=== PATIENT | female | born 1955 | race Two or more races ===

== ENCOUNTER 2017-08-07 05:52 | Day surgery (SDC) | payer OTHER ==
[2017-08-07] MEDS ORDERED: SOD CHLORIDE 0.9% 1,000 ML IV (06:00)
[2017-08-07] MEDS ORDERED: CEFAZOLIN 2 GM/50 ML (PMX) 50 ML IVPB (06:00)
[2017-08-07] MEDS ORDERED: MIDAZOLAM 1 MG/ML 2 ML INJ (06:45)
[2017-08-07] MEDS ORDERED: LIDOCAINE 1% (MDV) 20 ML INJ (06:45)
[2017-08-07] MEDS ORDERED: PROPOFOL 20 ML (06:45)
[2017-08-07] MEDS ORDERED: ROCURONIUM 50 MG INJ (06:46)
[2017-08-07] MEDS ORDERED: SUCCINYLCHOLINE CHLORIDE 100 MG/5 ML SYG IV (06:46)
[2017-08-07] MEDS ORDERED: FENTAnyl 50 MCG/ML VIAL (06:47)
[2017-08-07] MEDS ORDERED: DEXAMETHASONE 4 MG/ML 1 ML INJ (06:47)
[2017-08-07] MEDS ORDERED: ONDANSETRON 4 MG INJ (06:48)
[2017-08-07] MEDS ORDERED: CEFAZOLIN 1 GM INJ (06:48)
[2017-08-07 06:49] LABS: ADD MAN DIFF? NO
[2017-08-07] MEDS ORDERED: EPHEDrine SULFATE 50 MG/5 ML SYG (06:49)
[2017-08-07] MEDS ORDERED: PHENYLephrine (100 MCG/ML) 5ML SYG (06:49)
[2017-08-07 06:51] LABS: WHITE BLOOD COUNT 4.4 10^3/ul (4.8-10.8)
[2017-08-07 06:51] LABS: BASOPHIL # 0.1 10^3/ul (0.0-0.1); BASOPHILS % 1.6 % (0.0-2.0); EOSINOPHILS # 0.2 10^3/ul (0.0-0.5); EOSINOPHILS % 3.7 % (0.0-7.0); HEMATOCRIT 36.9 % (37.0-47.0); HEMOGLOBIN 12.4 g/dl (12.0-16.0); LYMPHOCYTES # 1.8 10^3/ul (0.8-2.9); LYMPHOCYTES % 41.1 % (15.0-51.0); MEAN CORPUSCULAR HGB CONC 33.6 g/dl (32.0-37.0); MEAN CORPUSCULAR VOLUME 92.3 fl (82.0-101.0); MEAN PLATELET VOLUME 10.9 fl (7.4-10.4); MONOCYTE # 0.3 10^3/ul (0.3-0.9); MONOCYTES % 6.7 % (0.0-11.0); NEUTROPHILS % 46.7 % (39.0-77.0); PLATELET COUNT 218 10^3/UL (140-415); RED CELL DISTRIBUTION WIDTH 13.8 % (11.5-14.5)
[2017-08-07 07:05] LABS: INR 0.94; PROTIME 12.7 Sec (11.9-14.9)
[2017-08-07 07:06] LABS: PARTIAL THROMBOPLASTIN TIME 28.7 Sec (25.0-35.0)
[2017-08-07 07:23] LABS: ALANINE AMINOTRANSFERASE 28 IU/L (13-69); ALBUMIN 4.6 g/dl (3.3-4.9); ALBUMIN/GLOBULIN RATIO 1.48; ALKALINE PHOSPHATASE 67 IU/L (42-121); ANION GAP 18 (8-16); ASPARTATE AMINO TRANSFERASE 26 IU/L (15-46); BILIRUBIN,INDIRECT 1.1 mg/dl (0-1.1); BILIRUBIN,TOTAL 1.1 mg/dl (0.2-1.3); CARBON DIOXIDE 26 mmol/L (21-31); CHLORIDE 106 mmol/L (97-110); GLUCOSE 94 mg/dl (70-220); TOTAL PROTEIN 7.7 g/dl (6.1-8.1)
[2017-08-07 07:25] LABS: BLOOD UREA NITROGEN 12 mg/dl (7-20); CALCIUM 9.2 mg/dl (8.4-10.2); CREATININE 0.88 mg/dl (0.44-1.00); POTASSIUM 4.2 mmol/L (3.5-5.1)
[2017-08-07 07:26] LABS: SODIUM 146 mmol/L (135-144)
[2017-08-07] MEDS ORDERED: ACETAMINOPHEN 1000MG/100ML IV 100 ML (07:40)
[2017-08-07] MEDS ORDERED: HYDROmorphONE 2 MG/ML SYG (07:43)
[2017-08-07] MEDS ORDERED: SUGAMMADEX SODIUM 200 MG/2 ML VIAL IV ×2 (07:54→08:19)
[2017-08-07] MEDS: BUPIVACAINE 0.25% (MPF) 30 ML INJ (08:04)
[2017-08-07] MEDS ORDERED: GLYCOPYRROLATE 0.4 MG INJ (08:07)
[2017-08-07] MEDS ORDERED: LABETALOL HCL 20MG INJ (08:15)
[2017-08-07] MEDS ORDERED: NALOXONE (0.4 MG/ML) INJ (08:25)
[2017-08-07] MEDS ORDERED: HYDROmorphONE (0.2 MG/ML) 10ML SYG IV ×3 (08:40→09:00)
[2017-08-07] MEDS ORDERED: IBUPROFEN 600 MG TAB PO (09:00)
[2017-08-07] MEDS ORDERED: morphine 2 MG INJ IV (09:00)
[2017-08-07] MEDS ORDERED: OXYCODONE/ACETAMINOPHEN (5/325) TAB PO ×2 (09:00)
[2017-08-07] MEDS ORDERED: ONDANSETRON 4 MG INJ IV ×2 (09:00)
[2017-08-07] MEDS ORDERED: morphine 10 MG INJ IM (09:00)
[2017-08-07] MEDS: HYDROmorphONE (0.2 MG/ML) 10ML SYG IV (09:09)
[2017-08-07] MEDS: KETOROLAC 30 MG INJ IV (09:16)
== END 2017-08-07 11:00 | disposition home or self-care (01) ==
LOC: SDS 05:52
DX: K80.10 Calculus of gallbladder with chronic cholecystitis without obstruction (principal)
CPT/HCPCS: 47562; 71045; 80053; 85025; 85610; 85730; 88304; 93005

== ENCOUNTER 2017-09-01 11:56 | Inpatient (IN) | payer OTHER ==
[2017-09-01] MEDS: ONDANSETRON 4 MG INJ IV (16:49)
[2017-09-01] MEDS: morphine 4 MG/ML VIAL IV (16:50)
[2017-09-01 17:20] LABS: ADD MAN DIFF? NO
[2017-09-01 17:28] LABS: WHITE BLOOD COUNT 9.3 10^3/ul (4.8-10.8)
[2017-09-01 17:28] LABS: ADD UMIC YES; BASOPHIL # 0.1 10^3/ul (0.0-0.1); BASOPHILS % 0.6 % (0.0-2.0); EOSINOPHILS % 0.1 % (0.0-7.0); HEMATOCRIT 36.1 % (37.0-47.0); HEMOGLOBIN 11.9 g/dl (12.0-16.0); LYMPHOCYTES # 1.2 10^3/ul (0.8-2.9); LYMPHOCYTES % 13.3 % (15.0-51.0); MEAN CORPUSCULAR HEMOGLOBIN 29.8 pg (29.0-33.0); MEAN CORPUSCULAR VOLUME 90.5 fl (82.0-101.0); MONOCYTE # 0.5 10^3/ul (0.3-0.9); MONOCYTES % 5.4 % (0.0-11.0); NEUTROPHIL # 7.5 10^3/ul (1.6-7.5); NEUTROPHILS % 80.3 % (39.0-77.0); PLATELET COUNT 651 10^3/UL (140-415); RED BLOOD COUNT 3.99 10^6/ul (4.20-5.40); RED CELL DISTRIBUTION WIDTH 13.2 % (11.5-14.5); UR ASCORBIC ACID 20 mg/dL (NEGATIVE); UR BILIRUBIN (Dip) 1+ mg/dL (NEGATIVE); UR BLOOD (Dip) 1+ mg/dL (NEGATIVE); UR CLARITY CLOUDY (CLEAR); UR COLOR AMBER (YELLOW); UR GLUCOSE (Dip) 1+ mg/dL (NEGATIVE); UR KETONES (Dip) 1+ mg/dL (NEGATIVE); UR LEUKOCYTE ESTERASE (Dip) NEGATIVE Leu/ul (NEGATIVE); UR MUCUS MANY /HPF (NONE SEEN); UR NITRITE (Dip) NEGATIVE (NEGATIVE); UR RBC 9 /HPF (0-5); UR SPECIFIC GRAVITY (Dip) 1.027 (1.003-1.030); UR SQUAMOUS EPITHELIAL CELL MODERATE /HPF (FEW); UR TOTAL PROTEIN (Dip) 3+ mg/dl (NEGATIVE); UR UROBILINOGEN (Dip) 2+ mg/dL (NEGATIVE); UR WBC 4 /HPF (0-5)
[2017-09-01 17:36] LABS: PROTIME 13.3 Sec (11.9-14.9)
[2017-09-01 17:37] LABS: PARTIAL THROMBOPLASTIN TIME 32.5 Sec (25.0-35.0)
[2017-09-01 17:41] LABS: ALANINE AMINOTRANSFERASE 51 IU/L (13-69); ALBUMIN 4.6 g/dl (3.3-4.9); ALBUMIN/GLOBULIN RATIO 1.06; ALKALINE PHOSPHATASE 426 IU/L (42-121); ANION GAP 22 (8-16); ASPARTATE AMINO TRANSFERASE 45 IU/L (15-46); BILIRUBIN,INDIRECT 0.5 mg/dl (0-1.1); BILIRUBIN,TOTAL 0.5 mg/dl (0.2-1.3); BLOOD UREA NITROGEN 26 mg/dl (7-20); CALCIUM 10.5 mg/dl (8.4-10.2); CARBON DIOXIDE 28 mmol/L (21-31); CHLORIDE 96 mmol/L (97-110); CREATININE 1.07 mg/dl (0.44-1.00); GLUCOSE 113 mg/dl (70-220); LIPASE 156 U/L (23-300); POTASSIUM 3.9 mmol/L (3.5-5.1); SODIUM 142 mmol/L (135-144); TOTAL PROTEIN 8.9 g/dl (6.1-8.1)
[2017-09-01] MEDS: IOHEXOL 300MG/ML 150 ML BTL ×2 (18:10)
[2017-09-01] MEDS: SOD CHLORIDE 0.9% 100 ML (18:10)
[2017-09-01] MEDS: IODIXANOL LOCM 100 ML BTL (18:11)
[2017-09-01] MEDS: PIPER-TAZO 3.375 GM IV (PMX) 100 ML IVPB (20:27)
[2017-09-01] MEDS ORDERED: ACETAMINOPHEN 325 MG TAB PO (21:00)
[2017-09-01] MEDS ORDERED: INDOMETHACIN 50 MG SUPP PR (21:00)
[2017-09-01] MEDS ORDERED: ONDANSETRON 4 MG INJ IV (21:00)
[2017-09-02] MEDS ORDERED: ALBUTEROL/IPRATROPIUM (NEB) 3 ML AMP HHN (00:30)
[2017-09-02] MEDS ORDERED: ONDANSETRON 4 MG INJ IV ×2 (00:30→16:30)
[2017-09-02] MEDS ORDERED: NACL 0.9% 3 ML SYG IV (00:30)
[2017-09-02] MEDS: DEXTROSE 5%-0.45% NACL 1,000 ML IV ×3 (02:40→20:38)
[2017-09-02] MEDS: PIPER-TAZO 3.375 GM IV (PMX) 100 ML IVPB ×5 (02:44→23:20)
[2017-09-02 05:28] LABS: ADD MAN DIFF? NO
[2017-09-02 05:37] LABS: BASOPHIL # 0.1 10^3/ul (0.0-0.1); BASOPHILS % 0.9 % (0.0-2.0); EOSINOPHILS % 0.4 % (0.0-7.0); HEMATOCRIT 33.1 % (37.0-47.0); HEMOGLOBIN 11.1 g/dl (12.0-16.0); LYMPHOCYTES # 0.9 10^3/ul (0.8-2.9); LYMPHOCYTES % 13.1 % (15.0-51.0); MEAN CORPUSCULAR HEMOGLOBIN 30.2 pg (29.0-33.0); MEAN CORPUSCULAR HGB CONC 33.5 g/dl (32.0-37.0); MEAN CORPUSCULAR VOLUME 89.9 fl (82.0-101.0); MONOCYTE # 0.5 10^3/ul (0.3-0.9); NEUTROPHIL # 5.5 10^3/ul (1.6-7.5); NEUTROPHILS % 78.5 % (39.0-77.0); PLATELET COUNT 529 10^3/UL (140-415); RED BLOOD COUNT 3.68 10^6/ul (4.20-5.40); RED CELL DISTRIBUTION WIDTH 13.2 % (11.5-14.5)
[2017-09-02] MEDS: morphine 2 MG INJ IV (06:06)
[2017-09-02 06:07] LABS: ALANINE AMINOTRANSFERASE 43 IU/L (13-69); ALBUMIN 3.8 g/dl (3.3-4.9); ALBUMIN/GLOBULIN RATIO 1.05; ALKALINE PHOSPHATASE 390 IU/L (42-121); ANION GAP 17 (8-16); ASPARTATE AMINO TRANSFERASE 54 IU/L (15-46); BILIRUBIN,INDIRECT 0.6 mg/dl (0-1.1); BILIRUBIN,TOTAL 0.6 mg/dl (0.2-1.3); BLOOD UREA NITROGEN 29 mg/dl (7-20); CALCIUM 9.7 mg/dl (8.4-10.2); CARBON DIOXIDE 29 mmol/L (21-31); CHLORIDE 99 mmol/L (97-110); CREATININE 0.91 mg/dl (0.44-1.00); GLUCOSE 121 mg/dl (70-220); MAGNESIUM 2.4 mg/dl (1.7-2.5); PHOSPHORUS 4.3 mg/dl (2.5-4.9); POTASSIUM 3.6 mmol/L (3.5-5.1); SODIUM 141 mmol/L (135-144); TOTAL PROTEIN 7.4 g/dl (6.1-8.1)
[2017-09-02] MEDS ORDERED: CEFAZOLIN 1 GM INJ (07:00)
[2017-09-02] MEDS ORDERED: NEOSTIGMINE 3 MG/3 ML SYRINGE (07:00)
[2017-09-02] MEDS ORDERED: GLYCOPYRROLATE 0.4 MG INJ (07:00)
[2017-09-02] MEDS ORDERED: EPHEDrine SULFATE 50 MG/5 ML SYG (07:00)
[2017-09-02] MEDS ORDERED: ROCURONIUM 50 MG INJ (07:00)
[2017-09-02] MEDS: FAMOTIDINE 20 MG INJ IV ×2 (08:37→20:30)
[2017-09-02] MEDS ORDERED: IOHEXOL 300MG/ML 30 ML BTL (13:33)
[2017-09-02] MEDS ORDERED: INDOMETHACIN 50 MG SUPP PR (13:35)
[2017-09-02] MEDS ORDERED: MIDAZOLAM 1 MG/ML 2 ML INJ (14:27)
[2017-09-02] MEDS ORDERED: FENTAnyl 50 MCG/ML VIAL (14:27)
[2017-09-02] MEDS ORDERED: LIDOCAINE 1% (MDV) 20 ML INJ (14:27)
[2017-09-02] MEDS ORDERED: PROPOFOL 20 ML (14:27)
[2017-09-02] MEDS ORDERED: PHENYLephrine (100 MCG/ML) 5ML SYG (14:28)
[2017-09-02] MEDS ORDERED: DEXAMETHASONE 4 MG/ML 1 ML INJ (14:38)
[2017-09-02] MEDS ORDERED: ONDANSETRON 4 MG INJ (14:38)
[2017-09-02] MEDS ORDERED: METOCLOPRAMIDE 10 MG INJ IV (16:30)
[2017-09-02] MEDS ORDERED: OXYCODONE/ACETAMINOPHEN (5/325) TAB PO ×2 (16:30)
[2017-09-03] MEDS: DEXTROSE 5%-0.45% NACL 1,000 ML IV ×2 (02:58→14:24)
[2017-09-03 05:07] LABS: ADD MAN DIFF? NO
[2017-09-03 05:11] LABS: BASOPHILS % 0.2 % (0.0-2.0); HEMOGLOBIN 9.7 g/dl (12.0-16.0); LYMPHOCYTES # 0.7 10^3/ul (0.8-2.9); LYMPHOCYTES % 11.1 % (15.0-51.0); MEAN CORPUSCULAR HEMOGLOBIN 30.1 pg (29.0-33.0); MEAN CORPUSCULAR HGB CONC 33.4 g/dl (32.0-37.0); MEAN CORPUSCULAR VOLUME 90.1 fl (82.0-101.0); MEAN PLATELET VOLUME 9.8 fl (7.4-10.4); MONOCYTE # 0.3 10^3/ul (0.3-0.9); MONOCYTES % 5.2 % (0.0-11.0); NEUTROPHIL # 5.1 10^3/ul (1.6-7.5); NEUTROPHILS % 83.3 % (39.0-77.0); PLATELET COUNT 441 10^3/UL (140-415); RED BLOOD COUNT 3.22 10^6/ul (4.20-5.40)
[2017-09-03 05:11] LABS: WHITE BLOOD COUNT 6.2 10^3/ul (4.8-10.8)
[2017-09-03] MEDS: PIPER-TAZO 3.375 GM IV (PMX) 100 ML IVPB ×4 (05:25→23:39)
[2017-09-03 05:32] LABS: ANION GAP 10 (8-16); BLOOD UREA NITROGEN 23 mg/dl (7-20); CALCIUM 9.1 mg/dl (8.4-10.2); CARBON DIOXIDE 30 mmol/L (21-31); CHLORIDE 102 mmol/L (97-110); CREATININE 0.77 mg/dl (0.44-1.00); GLUCOSE 155 mg/dl (70-220); MAGNESIUM 2.3 mg/dl (1.7-2.5); PHOSPHORUS 3.5 mg/dl (2.5-4.9); SODIUM 138 mmol/L (135-144)
[2017-09-03 05:41] LABS: LIPASE 538 U/L (23-300)
[2017-09-03] MEDS: LIDOCAINE 1% (MDV) 20 ML INJ (09:01)
[2017-09-03] MEDS: SOD CHLORIDE 0.9% 100 ML (09:13)
[2017-09-03] MEDS: MIDAZOLAM 1 MG/ML 2 ML INJ (09:13)
[2017-09-03] MEDS: FENTAnyl 50 MCG/ML VIAL (09:13)
[2017-09-03] MEDS: FAMOTIDINE 20 MG INJ IV ×2 (11:20→20:56)
[2017-09-04] MEDS: DEXTROSE 5%-0.45% NACL 1,000 ML IV ×2 (02:43→20:36)
[2017-09-04 05:37] LABS: ADD MAN DIFF? NO
[2017-09-04 05:44] LABS: WHITE BLOOD COUNT 5.7 10^3/ul (4.8-10.8)
[2017-09-04 05:44] LABS: BASOPHILS % 0.7 % (0.0-2.0); EOSINOPHILS # 0.1 10^3/ul (0.0-0.5); EOSINOPHILS % 2.1 % (0.0-7.0); HEMATOCRIT 30.6 % (37.0-47.0); HEMOGLOBIN 10.1 g/dl (12.0-16.0); LYMPHOCYTES # 1.1 10^3/ul (0.8-2.9); MEAN CORPUSCULAR HEMOGLOBIN 30.1 pg (29.0-33.0); MEAN CORPUSCULAR VOLUME 91.3 fl (82.0-101.0); MEAN PLATELET VOLUME 9.9 fl (7.4-10.4); MONOCYTE # 0.3 10^3/ul (0.3-0.9); MONOCYTES % 4.5 % (0.0-11.0); NEUTROPHIL # 4.2 10^3/ul (1.6-7.5); NEUTROPHILS % 73.4 % (39.0-77.0); PLATELET COUNT 442 10^3/UL (140-415); RED BLOOD COUNT 3.35 10^6/ul (4.20-5.40); RED CELL DISTRIBUTION WIDTH 13.3 % (11.5-14.5)
[2017-09-04] MEDS: PIPER-TAZO 3.375 GM IV (PMX) 100 ML IVPB ×3 (05:47→18:07)
[2017-09-04 06:21] LABS: LIPASE 216 U/L (23-300)
[2017-09-04 06:22] LABS: ANION GAP 10 (8-16); BLOOD UREA NITROGEN 8 mg/dl (7-20); CALCIUM 8.7 mg/dl (8.4-10.2); CARBON DIOXIDE 28 mmol/L (21-31); CHLORIDE 108 mmol/L (97-110); CREATININE 0.77 mg/dl (0.44-1.00); GLUCOSE 91 mg/dl (70-220); MAGNESIUM 2.1 mg/dl (1.7-2.5); PHOSPHORUS 2.3 mg/dl (2.5-4.9); POTASSIUM 3.1 mmol/L (3.5-5.1); SODIUM 143 mmol/L (135-144)
[2017-09-04] MEDS: FAMOTIDINE 20 MG INJ IV ×2 (09:07→20:36)
[2017-09-04] MEDS: morphine 2 MG INJ IV (10:30)
[2017-09-04] MEDS: POTASSIUM CHLORIDE 20 MEQ POWDER FOR ORAL SOLN PO (16:58)
[2017-09-05] MEDS: PIPER-TAZO 3.375 GM IV (PMX) 100 ML IVPB ×5 (00:52→23:50)
[2017-09-05] MEDS: morphine 2 MG INJ IV (02:32)
[2017-09-05 05:28] LABS: ADD MAN DIFF? NO
[2017-09-05 05:31] LABS: BASOPHIL # 0.1 10^3/ul (0.0-0.1); BASOPHILS % 1.6 % (0.0-2.0); EOSINOPHILS # 0.4 10^3/ul (0.0-0.5); EOSINOPHILS % 7.5 % (0.0-7.0); HEMATOCRIT 29.3 % (37.0-47.0); HEMOGLOBIN 9.7 g/dl (12.0-16.0); LYMPHOCYTES # 1.6 10^3/ul (0.8-2.9); LYMPHOCYTES % 32.5 % (15.0-51.0); MEAN CORPUSCULAR HEMOGLOBIN 29.9 pg (29.0-33.0); MEAN CORPUSCULAR HGB CONC 33.1 g/dl (32.0-37.0); MEAN CORPUSCULAR VOLUME 90.4 fl (82.0-101.0); MEAN PLATELET VOLUME 9.8 fl (7.4-10.4); MONOCYTE # 0.4 10^3/ul (0.3-0.9); MONOCYTES % 7.1 % (0.0-11.0); NEUTROPHIL # 2.6 10^3/ul (1.6-7.5); NEUTROPHILS % 51.1 % (39.0-77.0); PLATELET COUNT 402 10^3/UL (140-415); RED BLOOD COUNT 3.24 10^6/ul (4.20-5.40); RED CELL DISTRIBUTION WIDTH 13.4 % (11.5-14.5)
[2017-09-05 05:31] LABS: WHITE BLOOD COUNT 5.1 10^3/ul (4.8-10.8)
[2017-09-05] MEDS: DEXTROSE 5%-0.45% NACL 1,000 ML IV (05:37)
[2017-09-05 05:54] LABS: ANION GAP 9 (8-16); BLOOD UREA NITROGEN 4 mg/dl (7-20); CALCIUM 8.6 mg/dl (8.4-10.2); CARBON DIOXIDE 24 mmol/L (21-31); CHLORIDE 110 mmol/L (97-110); CREATININE 0.66 mg/dl (0.44-1.00); GLUCOSE 104 mg/dl (70-220); PHOSPHORUS 2.6 mg/dl (2.5-4.9); POTASSIUM 3.4 mmol/L (3.5-5.1); SODIUM 140 mmol/L (135-144)
[2017-09-05] MEDS: FAMOTIDINE 20 MG INJ IV (09:19)
[2017-09-05] MEDS: morphine LIQ (10 MG/5 ML) CUP PO (20:49)
[2017-09-05] MEDS: FAMOTIDINE 20 MG TAB PO (20:49)
[2017-09-06 05:20] LABS: ADD MAN DIFF? NO
[2017-09-06 05:38] LABS: BASOPHIL # 0.1 10^3/ul (0.0-0.1); BASOPHILS % 1.9 % (0.0-2.0); EOSINOPHILS # 0.6 10^3/ul (0.0-0.5); EOSINOPHILS % 11.6 % (0.0-7.0); HEMATOCRIT 30.7 % (37.0-47.0); HEMOGLOBIN 10.2 g/dl (12.0-16.0); LYMPHOCYTES # 1.9 10^3/ul (0.8-2.9); MEAN CORPUSCULAR HEMOGLOBIN 30.2 pg (29.0-33.0); MEAN CORPUSCULAR HGB CONC 33.2 g/dl (32.0-37.0); MEAN CORPUSCULAR VOLUME 90.8 fl (82.0-101.0); MEAN PLATELET VOLUME 10.1 fl (7.4-10.4); MONOCYTE # 0.3 10^3/ul (0.3-0.9); NEUTROPHIL # 2.3 10^3/ul (1.6-7.5); NEUTROPHILS % 44.3 % (39.0-77.0); PLATELET COUNT 430 10^3/UL (140-415); RED BLOOD COUNT 3.38 10^6/ul (4.20-5.40); RED CELL DISTRIBUTION WIDTH 13.9 % (11.5-14.5)
[2017-09-06 05:38] LABS: WHITE BLOOD COUNT 5.2 10^3/ul (4.8-10.8)
[2017-09-06 06:16] LABS: ANION GAP 12 (8-16); BLOOD UREA NITROGEN 5 mg/dl (7-20); CALCIUM 9.1 mg/dl (8.4-10.2); CARBON DIOXIDE 26 mmol/L (21-31); CHLORIDE 109 mmol/L (97-110); CREATININE 0.81 mg/dl (0.44-1.00); GLUCOSE 88 mg/dl (70-220); MAGNESIUM 2.1 mg/dl (1.7-2.5); PHOSPHORUS 3.5 mg/dl (2.5-4.9); POTASSIUM 3.6 mmol/L (3.5-5.1); SODIUM 143 mmol/L (135-144)
[2017-09-06] MEDS: PIPER-TAZO 3.375 GM IV (PMX) 100 ML IVPB ×4 (06:16→23:33)
[2017-09-06] MEDS: FAMOTIDINE 20 MG TAB PO ×2 (12:10→21:54)
[2017-09-07] MEDS: PIPER-TAZO 3.375 GM IV (PMX) 100 ML IVPB ×3 (05:38→18:38)
[2017-09-07 06:27] LABS: ADD MAN DIFF? NO
[2017-09-07 06:33] LABS: WHITE BLOOD COUNT 5.3 10^3/ul (4.8-10.8)
[2017-09-07 06:33] LABS: BASOPHIL # 0.1 10^3/ul (0.0-0.1); BASOPHILS % 1.7 % (0.0-2.0); EOSINOPHILS # 0.4 10^3/ul (0.0-0.5); EOSINOPHILS % 7.9 % (0.0-7.0); HEMATOCRIT 33.4 % (37.0-47.0); HEMOGLOBIN 11.1 g/dl (12.0-16.0); LYMPHOCYTES # 1.3 10^3/ul (0.8-2.9); LYMPHOCYTES % 24.9 % (15.0-51.0); MEAN CORPUSCULAR HGB CONC 33.2 g/dl (32.0-37.0); MEAN CORPUSCULAR VOLUME 90.3 fl (82.0-101.0); MEAN PLATELET VOLUME 10.2 fl (7.4-10.4); MONOCYTE # 0.3 10^3/ul (0.3-0.9); MONOCYTES % 5.6 % (0.0-11.0); NEUTROPHIL # 3.2 10^3/ul (1.6-7.5); NEUTROPHILS % 59.7 % (39.0-77.0); PLATELET COUNT 447 10^3/UL (140-415); RED CELL DISTRIBUTION WIDTH 13.9 % (11.5-14.5)
[2017-09-07 07:05] LABS: ANION GAP 15 (8-16); BLOOD UREA NITROGEN 8 mg/dl (7-20); CALCIUM 9.4 mg/dl (8.4-10.2); CARBON DIOXIDE 25 mmol/L (21-31); CHLORIDE 106 mmol/L (97-110); GLUCOSE 88 mg/dl (70-220); MAGNESIUM 2.2 mg/dl (1.7-2.5); PHOSPHORUS 3.4 mg/dl (2.5-4.9); SODIUM 142 mmol/L (135-144)
[2017-09-07] MEDS: FAMOTIDINE 20 MG TAB PO ×2 (09:55→20:31)
[2017-09-07] MEDS: MENTHOL/METH SALICYLATE 30 GM OINT TOP (16:22)
[2017-09-08] MEDS: PIPER-TAZO 3.375 GM IV (PMX) 100 ML IVPB ×5 (00:54→23:49)
[2017-09-08 05:30] LABS: ADD MAN DIFF? NO
[2017-09-08 05:36] LABS: BASOPHIL # 0.1 10^3/ul (0.0-0.1); BASOPHILS % 1.5 % (0.0-2.0); EOSINOPHILS # 0.4 10^3/ul (0.0-0.5); EOSINOPHILS % 9.5 % (0.0-7.0); HEMATOCRIT 30.6 % (37.0-47.0); HEMOGLOBIN 10.3 g/dl (12.0-16.0); LYMPHOCYTES # 1.5 10^3/ul (0.8-2.9); LYMPHOCYTES % 33.5 % (15.0-51.0); MEAN CORPUSCULAR HEMOGLOBIN 29.6 pg (29.0-33.0); MEAN CORPUSCULAR HGB CONC 33.7 g/dl (32.0-37.0); MEAN CORPUSCULAR VOLUME 87.9 fl (82.0-101.0); MEAN PLATELET VOLUME 9.9 fl (7.4-10.4); MONOCYTE # 0.3 10^3/ul (0.3-0.9); NEUTROPHIL # 2.2 10^3/ul (1.6-7.5); NEUTROPHILS % 48.3 % (39.0-77.0); PLATELET COUNT 388 10^3/UL (140-415); RED BLOOD COUNT 3.48 10^6/ul (4.20-5.40); RED CELL DISTRIBUTION WIDTH 14.2 % (11.5-14.5)
[2017-09-08 05:36] LABS: WHITE BLOOD COUNT 4.5 10^3/ul (4.8-10.8)
[2017-09-08 06:01] LABS: ALANINE AMINOTRANSFERASE 70 IU/L (13-69); ALBUMIN 3.3 g/dl (3.3-4.9); ALKALINE PHOSPHATASE 215 IU/L (42-121); ANION GAP 12 (8-16); ASPARTATE AMINO TRANSFERASE 76 IU/L (15-46); BILIRUBIN,INDIRECT 0.5 mg/dl (0-1.1); BILIRUBIN,TOTAL 0.5 mg/dl (0.2-1.3); BLOOD UREA NITROGEN 11 mg/dl (7-20); CALCIUM 9.1 mg/dl (8.4-10.2); CARBON DIOXIDE 23 mmol/L (21-31); CHLORIDE 110 mmol/L (97-110); CREATININE 0.78 mg/dl (0.44-1.00); GLUCOSE 92 mg/dl (70-220); POTASSIUM 3.7 mmol/L (3.5-5.1); SODIUM 141 mmol/L (135-144); TOTAL PROTEIN 6.6 g/dl (6.1-8.1)
[2017-09-08] MEDS: FAMOTIDINE 20 MG TAB PO ×2 (09:33→21:02)
[2017-09-09] MEDS: PIPER-TAZO 3.375 GM IV (PMX) 100 ML IVPB ×4 (05:45→23:36)
[2017-09-09 06:35] LABS: ALBUMIN 3.5 g/dl (3.3-4.9); ANION GAP 13 (8-16); BLOOD UREA NITROGEN 9 mg/dl (7-20); CALCIUM 8.9 mg/dl (8.4-10.2); CARBON DIOXIDE 23 mmol/L (21-31); CHLORIDE 111 mmol/L (97-110); CREATININE 0.83 mg/dl (0.44-1.00); GLUCOSE 80 mg/dl (70-220); MAGNESIUM 2.2 mg/dl (1.7-2.5); PHOSPHORUS 3.6 mg/dl (2.5-4.9); POTASSIUM 3.8 mmol/L (3.5-5.1); SODIUM 143 mmol/L (135-144)
[2017-09-09] MEDS: FAMOTIDINE 20 MG TAB PO ×2 (09:39→20:40)
[2017-09-10] MEDS: PIPER-TAZO 3.375 GM IV (PMX) 100 ML IVPB ×3 (05:19→18:49)
[2017-09-10 06:08] LABS: MAGNESIUM 2.4 mg/dl (1.7-2.5)
[2017-09-10 06:09] LABS: ALBUMIN 3.8 g/dl (3.3-4.9); ANION GAP 12 (8-16); BLOOD UREA NITROGEN 9 mg/dl (7-20); CALCIUM 9.4 mg/dl (8.4-10.2); CARBON DIOXIDE 25 mmol/L (21-31); CHLORIDE 111 mmol/L (97-110); GLUCOSE 86 mg/dl (70-220); PHOSPHORUS 3.8 mg/dl (2.5-4.9); POTASSIUM 4.1 mmol/L (3.5-5.1); SODIUM 144 mmol/L (135-144)
[2017-09-10] MEDS: BARIUM SULF 2% 450 ML BTL (BERRY SMOOTHIE) PO ×2 (07:05)
[2017-09-10] MEDS: SOD CHLORIDE 0.9% 100 ML (09:07)
[2017-09-10] MEDS: IOHEXOL 300MG/ML 150 ML BTL (09:07)
[2017-09-10] MEDS: FAMOTIDINE 20 MG TAB PO ×2 (11:23→20:53)
[2017-09-11] MEDS: PIPER-TAZO 3.375 GM IV (PMX) 100 ML IVPB ×4 (00:18→18:04)
[2017-09-11 05:08] LABS: ADD MAN DIFF? NO
[2017-09-11 05:11] LABS: BASOPHIL # 0.1 10^3/ul (0.0-0.1); BASOPHILS % 1.8 % (0.0-2.0); EOSINOPHILS # 0.4 10^3/ul (0.0-0.5); HEMATOCRIT 30.8 % (37.0-47.0); HEMOGLOBIN 10.3 g/dl (12.0-16.0); LYMPHOCYTES # 1.5 10^3/ul (0.8-2.9); LYMPHOCYTES % 33.8 % (15.0-51.0); MEAN CORPUSCULAR HEMOGLOBIN 29.7 pg (29.0-33.0); MEAN CORPUSCULAR HGB CONC 33.4 g/dl (32.0-37.0); MEAN CORPUSCULAR VOLUME 88.8 fl (82.0-101.0); MONOCYTE # 0.3 10^3/ul (0.3-0.9); MONOCYTES % 7.1 % (0.0-11.0); NEUTROPHIL # 2.1 10^3/ul (1.6-7.5); NEUTROPHILS % 48.1 % (39.0-77.0); PLATELET COUNT 348 10^3/UL (140-415); RED BLOOD COUNT 3.47 10^6/ul (4.20-5.40); RED CELL DISTRIBUTION WIDTH 14.2 % (11.5-14.5)
[2017-09-11 05:11] LABS: WHITE BLOOD COUNT 4.4 10^3/ul (4.8-10.8)
[2017-09-11 05:39] LABS: MAGNESIUM 2.1 mg/dl (1.7-2.5)
[2017-09-11 05:46] LABS: ALBUMIN 3.4 g/dl (3.3-4.9); ANION GAP 14 (8-16); BLOOD UREA NITROGEN 8 mg/dl (7-20); CALCIUM 9.2 mg/dl (8.4-10.2); CARBON DIOXIDE 24 mmol/L (21-31); CHLORIDE 108 mmol/L (97-110); CREATININE 0.77 mg/dl (0.44-1.00); GLUCOSE 88 mg/dl (70-220); PHOSPHORUS 3.8 mg/dl (2.5-4.9); POTASSIUM 3.8 mmol/L (3.5-5.1); SODIUM 142 mmol/L (135-144)
[2017-09-11] MEDS: FAMOTIDINE 20 MG TAB PO ×2 (09:09→20:23)
[2017-09-11 18:55] LABS: ADD MAN DIFF? NO
[2017-09-11 18:59] LABS: BASOPHIL # 0.1 10^3/ul (0.0-0.1); BASOPHILS % 1.9 % (0.0-2.0); EOSINOPHILS # 0.4 10^3/ul (0.0-0.5); EOSINOPHILS % 7.3 % (0.0-7.0); HEMATOCRIT 30.7 % (37.0-47.0); HEMOGLOBIN 10.4 g/dl (12.0-16.0); LYMPHOCYTES % 37.8 % (15.0-51.0); MEAN CORPUSCULAR HGB CONC 33.9 g/dl (32.0-37.0); MEAN CORPUSCULAR VOLUME 88.5 fl (82.0-101.0); MEAN PLATELET VOLUME 9.9 fl (7.4-10.4); MONOCYTE # 0.5 10^3/ul (0.3-0.9); MONOCYTES % 8.4 % (0.0-11.0); NEUTROPHIL # 2.4 10^3/ul (1.6-7.5); NEUTROPHILS % 44.4 % (39.0-77.0); PLATELET COUNT 345 10^3/UL (140-415); RED BLOOD COUNT 3.47 10^6/ul (4.20-5.40); RED CELL DISTRIBUTION WIDTH 14.3 % (11.5-14.5)
[2017-09-11 18:59] LABS: WHITE BLOOD COUNT 5.4 10^3/ul (4.8-10.8)
[2017-09-12] MEDS: PIPER-TAZO 3.375 GM IV (PMX) 100 ML IVPB ×4 (00:32→18:10)
[2017-09-12 06:17] LABS: INR 0.94; PROTIME 12.7 Sec (11.9-14.9)
[2017-09-12 06:26] LABS: ALBUMIN 3.4 g/dl (3.3-4.9); ANION GAP 11 (8-16); BLOOD UREA NITROGEN 9 mg/dl (7-20); CALCIUM 9.1 mg/dl (8.4-10.2); CARBON DIOXIDE 24 mmol/L (21-31); CHLORIDE 110 mmol/L (97-110); CREATININE 0.87 mg/dl (0.44-1.00); GLUCOSE 81 mg/dl (70-220); PHOSPHORUS 3.7 mg/dl (2.5-4.9); POTASSIUM 4.1 mmol/L (3.5-5.1); SODIUM 141 mmol/L (135-144)
[2017-09-12] MEDS: FAMOTIDINE 20 MG TAB PO ×2 (09:25→21:56)
[2017-09-13] MEDS: PIPER-TAZO 3.375 GM IV (PMX) 100 ML IVPB ×5 (00:41→23:40)
[2017-09-13] MEDS: FAMOTIDINE 20 MG TAB PO ×2 (09:12→21:21)
[2017-09-14] MEDS: PIPER-TAZO 3.375 GM IV (PMX) 100 ML IVPB (05:55)
[2017-09-14] MEDS: FAMOTIDINE 20 MG TAB PO (09:30)
== END 2017-09-14 12:35 | disposition home health service (06) | DRG 395 ==
LOC: MS1 20:53 → FTE 11:56 → MS1 09-03 21:40
PROC: 0F798DZ Dilation of Common Bile Duct with Intraluminal Device, Via Natural or Artificial Opening Endoscopic (ICD-10-PCS; principal; 2017-09-02 12:00)
PROC: BF141ZZ Fluoroscopy of Gallbladder, Bile Ducts and Pancreatic Ducts using Low Osmolar Contrast (ICD-10-PCS; 2017-09-02 12:00)
PROC: 0W9F3ZZ Drainage of Abdominal Wall, Percutaneous Approach (ICD-10-PCS; 2017-09-02 14:16)
DX: K91.89 Other postprocedural complications and disorders of digestive system (principal); K83.8 Other specified diseases of biliary tract; K76.89 Other specified diseases of liver; M54.9 Dorsalgia, unspecified; R11.10 Vomiting, unspecified; Z90.49 Acquired absence of other specified parts of digestive tract
CPT/HCPCS: 36415; 74177; 74330; 76705; 77012; 78226; 80048; 80053; 80069; 81001; 82271; 83690; 83735; 84100; 85025; 85610; 85730; 87040; 87070; 87075; 87086; 87400; 96374; 96375; 99285-25